=== PATIENT | female | born 1950 | race Caucasian/White ===

== ENCOUNTER 2024-05-17 11:58 | Emergency (ER) | payer OTHER ==
[2024-05-17] MEDS ORDERED: ACETAMINOPHEN 500 MG TAB ONE (12:27)
[2024-05-17] MEDS ORDERED: LIDOCAINE 4% PATCH ONE (12:28)
[2024-05-17] MEDS ORDERED: KETOROLAC 30 MG/ML INJ ONE (12:28)
[2024-05-17] MEDS ORDERED: methocarbamoL 500 MG TAB ONE (12:28)
--- NOTE | 2024-05-17 13:29 | RAD REPORT ---
EXAM DESCRIPTION: [facility] Single View05/17/2024 12:49 pm CLINICAL HISTORY: rib pain COMPARISON: CHEST SINGLE VIEW dated 01/13/2015; CHEST SINGLE VIEW dated 01/12/2015 TECHNIQUE: Portable AP view of the chest. FINDINGS: The lungs are clear. No pneumothorax or effusion. The cardiomediastinal contours are unre markable. IMPRESSION: No acute cardiopulmonary process.
--- NOTE | 2024-05-17 13:43 | RAD REPORT ---
EXAM DESCRIPTION: RAD - Ribs Left - 05/17/2024 12:49 pm CLINICAL HISTORY: L rib pain COMPARISON: Chest Single View dated 05/17/2024 TECHNIQUE: Left ribs, 3 views. FINDINGS: No displaced rib fracture is evident. No aggressive rib lesion. No underlying pneumothorax, effusion, infiltrate or pulmonary contusion. IMPRESSION: Negative left rib series.
--- NOTE | 2024-05-17 13:52 | ER ---
Nurse's Notes [facility] Name: Renny Cheema Age: 73 yrs Sex: Female : 1950 Arrival Date: 05/17/2024 Time: 11:58 Bed 12 Private MD: Diagnosis: Sprain of ribs Presentation: 05/17 12:12 Chief complaint: Patient states: "my son just came out of surgery and I reached over aa5 the bed and my rib went over the rail and now it's hurting". Pt c/o pain to anterior left lower rib cage. Coronavirus screen: At this time, the client does not indicate any symptoms associated with coronavirus-19. Ebola Screen: Patient denies travel to an Ebola-affected area in the 21 days before illness onset. Initial Sepsis Screen: Does the patient meet any 2 criteria? No. Patient's initial sepsis screen is negative. Does the patient have a suspected source of infection? No. Patient's initial sepsis screen is negative. Risk Assessment: Do you want to hurt yourself or someone else? Patient reports no desire to harm self or others. Onset of symptoms was May 2024. 12:12 Method Of Arrival: Ambulatory aa5 12:12 Acuity: KENYA 4 aa5 Historical: - Allergies: 12:13 Codeine; aa5 - PMHx: 12:13 Hypercholesterolemia; Hypertensive disorder; aa5 - Immunization history:: Adult Immunizations unknown. - Infectious Disease History:: Denies. - Social history:: Smoking status: Patient denies any tobacco usage or history of. Screenin:15 [facility] ED Fall Risk Assessment (Adult) History of falling in the last 3 months, as6 including since admission No falls in past 3 months (0 pts) Confusion or Disorientation No (0 pts) Intoxicated or Sedated No (0 pts) Impaired Gait No (0 pts) Mobility Assist Device Used No (0 pt) Altered Elimination No (0 pt) Score/Fall Risk Level 0 - 2 = Low Risk Oriented to surroundings, Maintained a safe environment, Educated pt \\T\\ family on fall prevention, incl call for assistance when getting out of bed, Assessed \\T\\ reinforced patient's understanding of fall precautions. Abuse screen: Denies threats or abuse. Denies injuries from another. Nutritional screening: No deficits noted. Tuberculosis screening: No symptoms or risk factors identified. Assessment: 12:18 General: Appears in no apparent distress. Behavior is calm, cooperative. Pain: as6 Complains of pain in left lateral anterior chest Quality of pain is described as sharp. Respiratory: Airway is patent Trachea midline Respiratory effort is even, unlabored, Respiratory pattern is regular, symmetrical. 13:29 Reassessment: "I'm feeling a little better". as6 Vital Signs: 12:12 BP 181 / 92; Pulse 57; Resp 16 S; Temp 97.4(TE); Pulse Ox 100% on R/A; Weight 66.68 kg aa5 (R); Height 5 ft. 1 in. (R); 13:29 BP 124 / 72; Pulse 75; Resp 18 S; Pulse Ox 97% on R/A; as6 14:15 BP 134 / 68; Pulse 70; Resp 16; Pulse Ox 98% ; as6 12:12 Body Mass Index 27.78 (66.68 kg, 154.94 cm) aa5 ED Course: 12:01 Patient arrived in ED. im 12:02 Diego Mansfield MD is Attending Physician. ec2 12:12 Arm band placed on. aa5 12:13 Triage completed. aa5 12:14 Pete Edwards RN is Primary Nurse. as6 12:19 Bed in low position. Call light in reach. Warm blanket given. as6 12:51 CXR XRAY In Process Unspecified. EDMS 12:51 Ribs Left XRAY In Process Unspecified. EDMS 14:16 Provided Education on: follow up, rx teaching. as6 14:16 No provider procedures requiring assistance completed. Patient did not have IV access as6 during this emergency room visit. Administered Medications: 12:33 Drug: Lidoderm Topical Patch 5 % (700 mg/patch) 1 patches Topical once; leave on for 12 as6 hours; cover most painful area; may cut into smaller pieces Route: Topical; Site: anterior chest wall; 14:16 Follow up: Response: No adverse reaction as6 12:34 Drug: Methocarbamol PO 500 mg PO once Route: PO; as6 14:16 Follow up: Response: No adverse reaction as6 12:34 Drug: Acetaminophen PO 1000 mg PO once Route: PO; as6 14:17 Follow up: Response: No adverse reaction as6 12:34 Drug: Ketorolac IM 15 mg IM once Route: IM; Site: right deltoid; as6 14:17 Follow up: Response: No adverse reaction as6 Medication: 12:15 VIS not applicable for this client. as6 Outcome: 13:52 Discharge ordered by . ec2 14:16 Discharged to home ambulatory, with significant other, as6 14:16 Condition: stable 14:16 Discharge instructions given to patient, Instructed on discharge instructions, follow up and referral plans. medication usage, Demonstrated understanding of instructions, follow-up care, medications, Prescriptions given X 1, 14:17 Patient left the ED. as6 Signatures: Dispatcher [employer] Hetal Huerta RN RN aa5 Pete Edwards RN RN as6 Desirae Amador Edwin, MD MD ec2 Corrections: (The following items were deleted from the chart) 12:14 12:13 Allergies: No Known Allergies; aa5 aa5
--- NOTE | 2024-05-17 13:53 | EDPHYS ---
Physician Documentation [facility] Name: Renny Cheema Age: 73 yrs Sex: Female : 1950 Arrival Date: 05/17/2024 Time: 11:58 Bed 12 Private MD: ED Physician Diego Mansfield HPI: 05/17 12:20 This 73 yrs old Female presents to ER via Ambulatory with complaints of rib ec2 pain. 12:21 Patient arrives today for evaluation of left rib pain. States she was bending over and ec2 subsequently strained her left lower ribs. States that she felt a "pop ". Patient denies any significant medical problems. Denies any difficulty breathing. States that the pain is worsened when he pressed on the area and attempts musculoskeletal movement.. Historical: - Allergies: 12:13 Codeine; aa5 - PMHx: 12:13 Hypercholesterolemia; Hypertensive disorder; aa5 - Immunization history:: Adult Immunizations unknown. - Infectious Disease History:: Denies. - Social history:: Smoking status: Patient denies any tobacco usage or history of. ROS: 12:21 Constitutional: as per hpi ec2 Exam: 12:21 Constitutional: GEN: NAD Head: atraumatic Eyes: EOMI Ears: External ears are ec2 normal. CV: regular rate LUNGS: no respiratory distress, no wheezes, no rales, no rhonchi, lung sounds present in all lung fletcher ABD: non-distended SKIN: no evidence of rashes MSK: no evidence of trauma, reproducible left lower chest wall TTP without deformities or crepitus or ecchymosis appreciated. NEURO: moves all extremities equally Vital Signs: 12:12 BP 181 / 92; Pulse 57; Resp 16 S; Temp 97.4(TE); Pulse Ox 100% on R/A; Weight 66.68 kg aa5 (R); Height 5 ft. 1 in. (R); 13:29 BP 124 / 72; Pulse 75; Resp 18 S; Pulse Ox 97% on R/A; as6 14:15 BP 134 / 68; Pulse 70; Resp 16; Pulse Ox 98% ; as6 12:12 Body Mass Index 27.78 (66.68 kg, 154.94 cm) aa5 MDM: 12:02 Patient medically screened. ec2 12:21 Data reviewed: vital signs. ED course: Patient arrives today for evaluation of left ec2 lower rib pain. Examination remarkable for well-appearing nontoxic dividual with reproducible chest wall TTP without deformities and reassuring lung sounds. Will obtain chest x-ray and rib series to evaluate for bony injury. Differential diagnosis includes rib contusion, rib sprain, bony fracture.. 12:56 ED course: Chest x-ray and rib series independently reviewed and interpreted by me, ec2 shows no acute traumatic pathology. Presentation consistent with rib strain. Will discharge home have patient follow-up with primary care doctor. . 05/17 12:15 Order name: CXR XRAY; Complete Time: 13:52 ec2 05/17 12:15 Order name: Ribs Left XRAY; Complete Time: 13:52 ec2 Administered Medications: 12:33 Drug: Lidoderm Topical Patch 5 % (700 mg/patch) 1 patches Topical once; leave on for 12 as6 hours; cover most painful area; may cut into smaller pieces Route: Topical; Site: anterior chest wall; 14:16 Follow up: Response: No adverse reaction as6 12:34 Drug: Methocarbamol PO 500 mg PO once Route: PO; as6 14:16 Follow up: Response: No adverse reaction as6 12:34 Drug: Acetaminophen PO 1000 mg PO once Route: PO; as6 14:17 Follow up: Response: No adverse reaction as6 12:34 Drug: Ketorolac IM 15 mg IM once Route: IM; Site: right deltoid; as6 14:17 Follow up: Response: No adverse reaction as6 Disposition Summary: 05/17/24 13:52 Discharge Ordered Notes: Location: Home ec2 Condition: Stable ec2 Diagnosis - Sprain of ribs ec2 Followup: ec2 - With: Private Physician - When: - Reason: Re-evaluation by your physician Discharge Instructions: - Discharge Summary Sheet ec2 - Rib Contusion ec2 Forms: - Medication Reconciliation Form ec2 - Antibiotic Education ec2 - Prescription Opioid Use ec2 - Patient Portal Instructions ec2 - Leadership Thank You Letter ec2 Prescriptions: - methocarbamol 500 mg Oral tablet - take 1 tablet ORAL route 4 times per day; 15 tablet; Refills: 0, Product ec2 Selection Permitted Signatures: Dispatcher [employer] EDMS Hetal Sullivan RN RN aa5 Pete Edwards RN RN as6 Diego Mansfield MD MD ec2 Corrections: (The following items were deleted from the chart) 12:14 12:13 Allergies: No Known Allergies; aa5 aa5
[2024-05-17 14:37] VITALS: TEMP 97.4
[2024-05-17 15:03] VITALS: BP 134/68; O2SAT 98
== END 2024-05-17 14:17 | disposition home or self-care (01) ==
LOC: ER 11:58
DX: S23.41XA Sprain of ribs, initial encounter (principal)
CPT/HCPCS: 71045; 71100; J2001; 96372; 99284